=== PATIENT | male | born 1965 | race Caucasian/White ===

== ENCOUNTER 2022-01-31 16:07 | Emergency (ER) | payer OTHER ==
[~2022-01-31] VITALS: Ht 162.6 cm; Wt 79.5 kg
[2022-01-31 16:43] VITALS: BP 146/85
[2022-01-31] MEDS ORDERED: PredniSONE 20 MG TABLET PO ONE (16:45)
[2022-01-31] MEDS ORDERED: MOXI3DRO27 OU (16:50)
== END 2022-01-31 17:16 | disposition home or self-care (01) ==
LOC: EMS 16:15
DX: H10.33 Unspecified acute conjunctivitis, bilateral (principal); F10.20 Alcohol dependence, uncomplicated; F12.90 Cannabis use, unspecified, uncomplicated; F17.210 Nicotine dependence, cigarettes, uncomplicated
CPT/HCPCS: 99283; J7512

== ENCOUNTER 2022-10-25 09:44 | Emergency (ER) | payer OTHER ==
[~2022-10-25] VITALS: Ht 162.6 cm; Wt 81.8 kg
[~2022-10-25 09:44] MED LIST: MOXI3DRO27 OU
[2022-10-25 09:56] VITALS: TEMP 97.6
[2022-10-25] MEDS ORDERED: DEXAMETHASONE SOD PHOS 4 MG/ML 5 ML VIAL IVP ONE (10:30)
[2022-10-25] MEDS ORDERED: DiphenhydrAMINE HCL 50 MG/ML VIAL IVP ONE (10:30)
[2022-10-25] MEDS ORDERED: IPRATROPIUM BROMIDE 0.5 MG/2.5 ML NEB SOLUTION NEB ONE (13:00)
[2022-10-25] MEDS ORDERED: ALBUTEROL SULFATE 2.5 MG/0.5 ML NEB SOLUTION NEB ONE (13:00)
[2022-10-25 13:04] VITALS: PULSE 77; RESP 20; O2SAT 94
[2022-10-25 13:14] VITALS: PULSE 78; RESP 18; O2SAT 99
[2022-10-25 15:20] VITALS: BP 126/75; PULSE 72; RESP 18
== END 2022-10-25 15:53 | disposition home or self-care (01) ==
LOC: EMS 09:45
DX: T78.40XA Allergy, unspecified, initial encounter (principal); F17.210 Nicotine dependence, cigarettes, uncomplicated; F12.90 Cannabis use, unspecified, uncomplicated; X58.XXXA Exposure to other specified factors, initial encounter
CPT/HCPCS: 99285; 96374; 96375; 94640; J1100; J1200

== ENCOUNTER 2024-05-13 10:04 | Emergency (ER) | payer OTHER ==
[~2024-05-13] VITALS: Ht 162.6 cm; Wt 81.8 kg
[2024-05-13 10:11] VITALS: TEMP 97.9
[2024-05-13] MEDS: LIDOCAINE 1% 10 ML VIAL ID ONE (11:28)
[2024-05-13] MEDS: POVIDONE-IODINE 10% 15 ML SOLUTION UD TP ONE (11:30)
[2024-05-13] MEDS: SULFAMETHOX/TRIMETH DS 800-160 MG/TABLET PO ONE (14:06)
[2024-05-13] MEDS: CEPHALEXIN MONOHYDRATE 500 MG CAPSULE PO ONE (14:06)
[2024-05-13] MEDS ORDERED: CEPH-558 PO (14:10)
[2024-05-13] MEDS ORDERED: IBUP-1492 PO (14:10)
[2024-05-13] MEDS ORDERED: SULF-261 PO (14:10)
[2024-05-13 14:55] VITALS: BP 156/83; PULSE 77; RESP 16; O2SAT 100
== END 2024-05-13 15:23 | disposition home or self-care (01) ==
LOC: EMS 10:06
DX: L02.31 Cutaneous abscess of buttock (principal); F12.90 Cannabis use, unspecified, uncomplicated; F17.210 Nicotine dependence, cigarettes, uncomplicated
CPT/HCPCS: 99284; 10060; J3490; A4247; 99283

== ENCOUNTER 2024-05-15 12:07 | Emergency (ER) | payer OTHER ==
[~2024-05-15] VITALS: Ht 162.6 cm; Wt 82.0 kg
[~2024-05-15 12:07] MED LIST changes: +CEPH-558 PO; +IBUP-1492 PO; -MOXI3DRO27 OU; +SULF-261 PO
[2024-05-15 12:23] VITALS: TEMP 98
[2024-05-15 18:16] VITALS: BP 140/77; PULSE 74; RESP 18; O2SAT 99
== END 2024-05-15 18:18 | disposition home or self-care (01) ==
LOC: EMS 12:07
DX: L02.31 Cutaneous abscess of buttock (principal); F17.210 Nicotine dependence, cigarettes, uncomplicated; F12.90 Cannabis use, unspecified, uncomplicated; Z48.00 Encounter for change or removal of nonsurgical wound dressing; Z48.817 Encounter for surgical aftercare following surgery on the skin and subcutaneous tissue
CPT/HCPCS: 99281; Z7502